=== PATIENT | female | born 2000 | race American Indian/Alaskan Native ===

== ENCOUNTER 2022-02-14 19:22 | Emergency (ER) | payer SELFPAY ==
[2022-02-14 20:22] VITALS: BP 149/82
[2022-02-14 21:52] LABS: Mucus,Urine FEW /HPF
[2022-02-14 22:00] LABS: Basophils % (Auto) 0.4 % (0.0-1.8); Eosinophils # (Auto) 0.2 K/mm3 (0.0-0.4); Eosinophils % (Auto) 1.8 % (0.0-4.3); Hematocrit 35.9 % (30.3-42.9); Hemoglobin 11.9 gm/dl (10.1-14.3); Lymphocytes # (Auto) 4.3 K/mm3 (1.2-5.4); Lymphocytes % (Auto) 50.1 % (13.4-35.0); Mean Corpuscular HGB Conc 33 % (30-34); Mean Corpuscular Volume 95 fl (79-97); Monocytes # (Auto) 1.1 K/mm3 (0.0-0.8); Monocytes % (Auto) 12.4 % (0.0-7.3); Platelet Count 249 K/mm3 (140-440); Red Blood Count 3.77 M/mm3 (3.65-5.03); Red Cell Distribution Width 12.6 % (13.2-15.2)
[2022-02-14 22:15] LABS: Bilirubin,Urine Negative (Negative); Blood,Urine Trace (Negative); Color,Urine Yellow (Yellow)
--- NOTE | 2022-02-14 22:31 | Emergency Department Report ---
ED Abdominal Pain HPI - General Chief Complaint: Vaginal Bleeding Stated Complaint: VAGINAL BLEEDING Time Seen by Provider: 02/14/22 22:19 Source: patient Mode of arrival: Ambulatory Limitations: No Limitations - History of Present Illness MD Complaint: abdominal pain Radiation: none Migration to: no migration Severity: mild, moderate Consistency: constant Improves With: bowel movement Associated Symptoms: constipation. denies: vomiting, diarrhea, melena, hematuria - Related Data Previous Rx's Medication Instructions Recorded Last Taken Type Lactulose [Cephulac] 30 gm PO Q6HR #450 ml 02/14/22 Unknown Rx Allergies Allergy/AdvReac Type Severity Reaction Status Date / Time No Known Allergies Allergy Verified 02/14/22 20:24 ED Review of Systems ROS: Stated complaint: VAGINAL BLEEDING Other details as noted in HPI Comment: All other systems reviewed and negative ED Past Medical Hx - Medications Home Medications: Home Medications Medication Instructions Recorded Confirmed Last Taken Type Lactulose [Cephulac] 30 gm PO Q6HR #450 ml 02/14/22 Unknown Rx ED Physical Exam - General Limitations: No Limitations General appearance: alert, in no apparent distress - Head Head exam: Present: atraumatic, normocephalic - Eye Eye exam: Present: normal appearance, PERRL, EOMI - ENT ENT exam: Present: mucous membranes moist - Neck Neck exam: Present: normal inspection - Respiratory Respiratory exam: Present: normal lung sounds bilaterally. Absent: respiratory distress - Cardiovascular Cardiovascular Exam: Present: regular rate, normal rhythm. Absent: systolic murmur, diastolic murmur, rubs, gallop - GI/Abdominal GI/Abdominal exam: Present: soft, tenderness (mid and lower abdominal area. ), normal bowel sounds - Extremities Exam Extremities exam: Present: normal inspection - Back Exam Back exam: Present: normal inspection - Neurological Exam Neurological exam: Present: alert, oriented X3 - Psychiatric Psychiatric exam: Present: normal affect, normal mood - Skin Skin exam: Present: warm, dry, intact, normal color. Absent: rash ED Course Vital Signs 02/14/22 20:01 Temperature 98.7 F Pulse Rate 84 Respiratory 18 Rate Blood Pressure 149/82 O2 Sat by Pulse 100 Oximetry ED Medical Decision Making - Lab Data Result diagrams: 02/14/22 21:16 - Radiology Data Radiology results: report reviewed [facility] [address] [place] [address] XRay Report Signed Patient: ADAN CARVER MR#: [id number] : 2000 Acct:[id number] Age/Sex: 21 / F ADM Date: 02/14/22 Loc: ED Attending Dr: Ordering Physician: MARCELO HILL Date of Service: 02/14/22 Procedure(s): XR abdomen 1V ap Accession Number(s): [id number] cc: MARCELO HILL Fluoro Time In Minutes: ABDOMEN, ONE VIEW INDICATION / CLINICAL INFORMATION: abd pain. COMPARISON: None available. FINDINGS: Moderate amount of stool is present throughout the colon. No fecal impaction. The bowel gas pattern is otherwise normal. No abnormal soft tissue calcifications. IMPRESSION: Moderate amount retained stool. No other significant finding. Signer Name: Deneen Richardson MD Signed: 02/14/2022 11:18 PM Workstation Name: [id number] Transcribed By: Dictated By: Deneen Richardson MD Electronically Authenticated By: Deneen Richardson MD Signed Date/Time: 02/14/222317 DD/ 16 TD/TT: - Medical Decision Making 21-year-old male for management, complaining of suspicion of constipation and having issues for the last month with waxing and waning constipation. Reports no fever, chills, sweats. No diarrhea, no vomiting. Also has been having some vaginal bleeding according to the triage reports however she did not Disclose External Examination Question about the Vaginal Bleeding Struggled off As No Significant Issue Nonetheless Her Qualitative Is Negative and Examination No Suprapubic Discomfort or Masses She Reports No Hematuria or Dysuria. Urine Shows No Signs of an Active UTI During the visit the patient's friend who was at bedside during the examination came out of the room trying to find out some information about the visit once advised that she could not herself obtain the information that had to be via the patient she returned to the room and came back saying that they were leaving and they exited the building signed AMA form at that time they were aware the she was needed to discharge stage is all of her labs and reports had return Critical care attestation.: If time is entered above; I have spent that time in minutes in the direct care of this critically ill patient, excluding procedure time. ED Disposition Clinical Impression: Constipation, Negative test Disposition: HOME / SELF CARE / HOMELESS Is pt being admited?: No Does the pt Need Aspirin: No Condition: Stable Instructions: Constipation, Adult Prescriptions: Lactulose [Cephulac] 30 gm PO Q6HR #450 ml Referrals: RAMON HENSON MD [Staff Physician] - 3-5 Days
--- NOTE | 2022-02-14 22:35 | Emergency Department Report ---
ED Female HPI - General Chief complaint: Vaginal Bleeding Stated complaint: VAGINAL BLEEDING Time Seen by Provider: 02/14/22 22:19 Source: patient Mode of arrival: Ambulatory Limitations: No Limitations - Related Data Previous Rx's Medication Instructions Recorded Last Taken Type Lactulose [Cephulac] 30 gm PO Q6HR #450 ml 02/14/22 Unknown Rx Allergies Allergy/AdvReac Type Severity Reaction Status Date / Time No Known Allergies Allergy Verified 02/14/22 20:24 ED Review of Systems ROS: Stated complaint: VAGINAL BLEEDING Other details as noted in HPI Comment: All other systems reviewed and negative ED Past Medical Hx - Medications Home Medications: Home Medications Medication Instructions Recorded Confirmed Last Taken Type Lactulose [Cephulac] 30 gm PO Q6HR #450 ml 02/14/22 Unknown Rx ED Physical Exam - General Limitations: No Limitations General appearance: alert, in no apparent distress - Head Head exam: Present: atraumatic, normocephalic - Eye Eye exam: Present: normal appearance, PERRL, EOMI - ENT ENT exam: Present: normal exam, normal orophraynx, mucous membranes moist - Neck Neck exam: Present: normal inspection - Respiratory Respiratory exam: Present: normal lung sounds bilaterally. Absent: respiratory distress - Cardiovascular Cardiovascular Exam: Present: regular rate, normal rhythm. Absent: systolic m urmur, diastolic murmur, rubs, gallop - GI/Abdominal GI/Abdominal exam: Present: soft, normal bowel sounds - Extremities Exam Extremities exam: Present: normal inspection - Back Exam Back exam: Present: normal inspection - Neurological Exam Neurological exam: Present: alert, oriented X3 - Psychiatric Psychiatric exam: Present: normal affect, normal mood - Skin Skin exam: Present: warm, dry, intact, normal color. Absent: rash ED Course Vital Signs 02/14/22 20:01 Temperature 98.7 F Pulse Rate 84 Respiratory 18 Rate Blood Pressure 149/82 O2 Sat by Pulse 100 Oximetry ED Medical Decision Making - Lab Data Result diagrams: 02/14/22 21:16 Critical care attestation.: If time is entered above; I have spent that time in minutes in the direct care of this critically ill patient, excluding procedure time. ED Disposition Clinical Impression: Constipation, Negative test Disposition: 01 HOME / SELF CARE / HOMELESS Is pt being admited?: No Does the pt Need Aspirin: No Condition: Stable Instructions: Constipation, Adult Referrals: CARBUCCIA,RAMON, MD [Staff Physician] - 3-5 Days
--- NOTE | 2022-02-14 23:23 | XRay Report ---
ABDOMEN, ONE VIEW INDICATION / CLINICAL INFORMATION: abd pain. COMPARISON: None available. FINDINGS: Moderate amount of stool is present throughout the colon. No fecal impaction. The bowel gas pattern i s otherwise normal. No abnormal soft tissue calcifications. IMPRESSION: Moderate amount retained stool. No other significant finding. Signer Name: Deneen Richardson MD Signed: 02/14/2022 11:18 PM Workstation Name: [id number]
== END 2022-02-15 00:09 | disposition left against medical advice (07) ==
LOC: ED 19:22
DX: K59.00 Constipation, unspecified (principal); Z32.02 Encounter for pregnancy test, result negative; Z79.899 Other long term (current) drug therapy
CPT/HCPCS: 36415; 74018; 81001; 84702; 84703; 85025; 86900; 86901; 99283